=== PATIENT | male | born 1955 | race Caucasian/White ===

== ENCOUNTER 2019-11-28 16:00 | Emergency (ER) | payer BC, OTHER ==
[2019-11-28 17:00] VITALS: BP 153/58
[2019-11-28] MEDS ORDERED: Acetaminophen TAB* 325 MG PO ONE (17:24)
[2019-11-28 17:26] LABS: Influenza A Molecular POSITIVE (Negative)
[2019-11-28] MEDS ORDERED: Oseltamivir CAP* 75 MG CAP PO ONE (17:29)
--- NOTE | 2019-11-28 17:38 | UC ---
FLU HPI - HPI Summary HPI Summary: Onset yesterday with chills, fever, abdominal pain and bloating. No nausea or vomiting , no diarrhea. Cough. sore throat yesterday. - History of Current Complaint Chief Complaint: UCGeneralIllness Stated Complaint: FEVER, NEUSEA, COUGH Time Seen by Provider: 11/28/19 17:02 Hx Obtained From: Patient Onset/Duration: Sudden Onset, Lasting Days Severity Currently: Severe Severity Initially: Severe Pain Intensity: 8 - Allergy/Home Medications Allergies/Adverse Reactions: Allergies Allergy/AdvReac Type Severity Reaction Status Date / Time No Known Allergies Allergy Verified 11/28/19 16:45 Home Medications: Home Medications Atorvastatin* [Lipitor 10 MG*] 20 mg PO DAILY 11/28/19 [History Confirmed ] Ezetimibe TAB* [Zetia TAB*] 10 mg PO DAILY 11/28/19 [History Confirmed 11/28/19] Fenofibrate Nanocrystallized [Tricor] 48 mg PO DAILY 11/28/19 [History Confirmed 11/28/19] Ibuprofen TAB* [Advil TAB*] 400 mg PO Q6H PRN 11/28/19 [History Confirmed ] Metoprolol Succinate XL TAB* [Toprol XL TAB*] 100 mg PO DAILY 11/28/19 [History Confirmed 11/28/19] Oseltamivir CAP* [Tamiflu CAP*] 75 mg PO BID #9 cap 11/28/19 [Rx] Valsartan/HCTZ 320/25(NF) [Diovan Hct 320/25(NF)] 1 tab PO DAILY 11/28/19 [ History Confirmed 11/28/19] amLODIPine TAB* [Norvasc 5 mg TAB*] 5 mg PO DAILY 11/28/19 [History Confirmed ] PMH/Surg Hx/FS Hx/Imm Hx Previously Healthy: Yes - Surgical History Surgical History: Yes Surgery Procedure, Year, and Place: cardiac stent replacement 2003. back surgery - Family History Known Family History: Positive: Cardiac Disease, Hypertension - Social History Occupation: Employed Full-time Alcohol Use: Weekly Substance Use Type: None Smoking Status (MU): Former Smoker When Did the Patient Quit Smoking/Using Tobacco: 20 yars ago Review of Systems All Other Systems Reviewed And Are Negative: Yes Constitutional: Positive: Fever, Fatigue ENT: Positive: Sore Throat Respiratory: Positive: Cough Gastrointestinal: Positive: Other - distension Musculoskeletal: Positive: Arthralgia, Myalgia Neurological/Mental Status: Positive: Headache Is Patient Immunocompromised?: No Physical Exam Triage Information Reviewed: Yes Appearance: Well-Nourished, Ill-Appearing, Pain Distress Vital Signs: Initial Vital Signs Temp 102 F 11/28/19 16:48 Pulse 99 11/28/19 16:48 Resp 20 11/28/19 16:48 BP 153/58 11/28/19 16:48 Pulse Ox 94 11/28/19 16:48 Vital Signs Reviewed: Yes Eye Exam: Normal ENT: Positive: Pharyngeal erythema Dental Exam: Normal Neck exam: Normal Neck: Positive: Supple, Nontender, No Lymphadenopathy Respiratory Exam: Normal Respiratory: Positive: Chest non-tender, Lungs clear, Normal breath sounds Cardiovascular Exam: Normal Cardiovascular: Positive: RRR, No Murmur, Pulses Normal Abdomen Description: Positive: CVA Tenderness (R) - neg, CVA Tenderness (L) - neg, Distended Bowel Sounds: Positive: Present Musculoskeletal Exam: Normal Neurological Exam: Normal Psychological Exam: Normal Skin Exam: Normal Flu Course/Dx - Course Course Of Treatment: hx obtained, exam performed, meds prescribed, patient tested positive for influenza A, he is complaining of decreased appetite and abdominal distention. has been taking tums. receommend follow up if stomach issues increase tamiflu given for flu - Differential Dx/Diagnosis Differential Diagnosis/HQI/PQRI: Influenza Provider Diagnosis: Influenza A Discharge ED - Sign-Out/Discharge Documenting (check all that apply): Patient Departure All imaging exams completed and their final reports reviewed: No Studies - Discharge Plan Condition: Stable Disposition: HOME Prescriptions: Oseltamivir CAP* [Tamiflu CAP*] 75 mg PO BID #9 cap Patient Education Materials: Influenza (DC) Referrals: Marguerite Tapia PA [Primary Care Provider] - Additional Instructions: 1. take the medication as prescribed. 2. Ibuprofen for fever 3. Lots of rest and fluids 4. follow up with any increased respiratory difficulty. 5. I recommend that if your stomach pain increases, you develop worsening GERD or nausea, follow up in the ER for possible gall bladder issues. - Billing Disposition and Condition Condition: STABLE Disposition: Home
== END 2019-11-28 17:36 | disposition home or self-care (01) ==
LOC: UCCORT 16:00
DX: J10.1 Influenza due to other identified influenza virus with other respiratory manifestations (principal); Z87.891 Personal history of nicotine dependence
CPT/HCPCS: 99212; A9270-GY; G0463